=== PATIENT | female | born 1965 | race Caucasian/White ===

== ENCOUNTER 2020-11-10 06:29 | Day surgery (SDC) | payer OTHER ==
[~2020-11-10] VITALS: Ht 175.3 cm; Wt 105.0 kg
[~2020-11-10 06:29] MED LIST: LISINOPRIL20 MG PO
--- NOTE | 2020-11-10 07:47 | NUR ---
11/10/20 0747 Melody Serrano 0740 PT TO PACU ISHAAN DENIES PAIN OR NAUSEA
--- NOTE | 2020-11-10 09:44 | OR ---
[facility] [address], [place] [address] Signed DATE OF OPERATION: 11/10/2020 SURGEON: Megan Hernandez MD PREOPERATIVE DIAGNOSIS: Screening. POSTOPERATIVE DIAGNOSIS: Long redundant left and sigmoid colon. PROCEDURE: Colonoscopy without biopsy. ESTIMATED BLOOD LOSS: None. INDICATIONS: Jani is a 55-year-old female, asked to see me for her initial screening colonoscopy. She has no lower GI complaints. There is no family history of colon cancer or polyps. In the office, I gave her a pamphlet on colonoscopy and we looked at that together along with the risks including, but not limited to gas bloating, crampy abdominal pain, bleeding, perforation requiring surgery, and missed diagnosis. She also understands the need for IV conscious sedation. She had expressed understanding and wished to proceed. PROCEDURE NOTE: Jani was taken into our endoscopy suite and placed in the left lateral decubitus position. She was given a total of 7 mg of Versed and 150 mcg of fentanyl. A digital rectal exam was performed and this was unremarkable. The adult colonoscope was introduced and advanced under direct visualization of the camera. It took some time to get through the sigmoid colon as it was somewhat tortuous and angulated. This continued to the left colon and even the transverse colon. The farther we went though the better it was from a technical standpoint. Eventually, we went around the hepatic flexure and down into the cecum itself. We had used some extra sedation and abdominal compression in order to advance the scope. Her prep was quite excellent. We could easily see the appendiceal orifice and the ileocecal valve. The scope was then slowly withdrawn. She had no pathology throughout the entire colon or rectum. Upon retroflexion of scope, she has minimal if any internal hemorrhoid tissue. After this, the gas was suctioned out and the colonoscope removed. Jani tolerated the procedure quite well. RECOMMENDATIONS: Electronically Signed By: MEGAN HERNANDEZ MD 11/10/20 0944 PATIENT NAME: JANI KURTZ OPERATIVE REPORT DATE OF : 61 REPORT #: [id number] PHYSICIAN: MEGAN HERNANDEZ MD PCP: CORINNA BUSTOS MD REPORT IS CONFIDENTIAL AND NOT TO BE RELEASED WITHOUT AUTHORIZATION [address] [address] Signed Jani can follow up in 10 years for a repeat colonoscopy. Megan Hernandez MD ALB/MODL /[id number] cc: MD Corinna Rico MD Copies: MEGAN HERNANDEZ MD ~ Electronically Signed By: MEGAN HERNANDEZ MD 11/10/20 0944 PATIENT NAME: JANI KURTZ OPERATIVE REPORT DATE OF : 61 REPORT #: [id number] PHYSICIAN: MEGAN HERNANDEZ MD PCP: CORINNA BUSTOS MD REPORT IS CONFIDENTIAL AND NOT TO BE RELEASED WITHOUT AUTHORIZATION
== END 2020-11-10 08:20 | disposition home or self-care (01) ==
LOC: DS 06:29 → OPS 06:29 → DS 06:45 → OPS 06:45
PROVIDERS: ATTEND Colon & Rectal Surgery
PROC: 0DJD8ZZ Inspection of Lower Intestinal Tract, Via Natural or Artificial Opening Endoscopic (ICD-10-PCS; principal; 2020-11-10 06:45)
DX: Z12.11 Encounter for screening for malignant neoplasm of colon (principal); Q43.8 Other specified congenital malformations of intestine; K64.8 Other hemorrhoids; I10 Essential (primary) hypertension; Z90.711 Acquired absence of uterus with remaining cervical stump
CPT/HCPCS: 99153; G0500; J2250; J3010; J7121